=== PATIENT | female | born 1980 | race Caucasian/White ===

== ENCOUNTER 2019-06-17 08:47 | Outpatient (CLI) | payer OTHER | END 2019-06-17 08:48 | disposition home or self-care (01) | LOC: RT 08:47 | PROVIDERS: ATTEND Naturopath | DX: I49.9 Cardiac arrhythmia, unspecified (principal); R00.2 Palpitations | CPT/HCPCS: 93005 ==

== ENCOUNTER 2019-06-28 07:46 | Outpatient (CLI) | payer OTHER ==
[2019-06-28 08:18] LABS: BASOPHILS # (AUTO) 0.1 10^3/uL (0.0-0.1); BASOPHILS % (AUTO) 1.6 %; EOSINOPHILS # (AUTO) 0.3 10^3/uL (0.0-0.7); EOSINOPHILS % (AUTO) 5.6 %; HGB - HEMOGLOBIN 14.8 g/dL (12.0-16.0); LYMPHOCYTES # (AUTO) 1.7 10^3/uL (1.5-3.5); LYMPHOCYTES % (AUTO) 30.5 %; MEAN CORPUSCULAR HEMOGLOBIN 29.2 pg (27.0-31.0); MEAN CORPUSCULAR VOLUME 88.4 fL (81.0-99.0); MEAN PLATELET VOLUME 9.7 fL (7.9-10.8); MONOCYTES # (AUTO) 0.5 10^3/uL (0.0-1.0); MONOCYTES % (AUTO) 8.4 %; NEUTROPHILS # (AUTO) 2.9 10^3/uL (1.5-6.6); NEUTROPHILS % (AUTO) 53.5 %; PLT - PLATELET COUNT 236 10^3/uL (130-450); RED BLOOD COUNT 5.07 10^6/uL (4.20-5.40); RED CELL DISTRIBUTION WIDTH 12.4 % (12.0-15.0); WHITE BLOOD COUNT 5.5 x10^3/uL (4.8-10.8)
[2019-06-28 08:38] LABS: % IRON SATURATION 33 % (20-50); GLUCOSE,FASTING 105 mg/dL (70-100); IRON 121 ug/dL (28-170); TOTAL IRON BINDING CAPACITY 365 ug/dL (250-450); TRANSFERRIN 261 mg/dL (192-382)
[2019-06-28 08:49] LABS: THYROID STIMULATING HORMONE 2.44 uIU/mL (0.34-5.60)
[2019-06-28 08:52] LABS: FREE T4 (FREE THYROXINE) 0.68 ng/dL (0.58-1.64)
[2019-06-28 08:55] LABS: FERRITIN 36.1 ng/mL (11.0-306.8)
[2019-06-28 09:10] LABS: CRP - C-REACTIVE PROTEIN < 1.0 mg/dL (0-1.0)
[2019-06-28 09:41] LABS: HB2 TOTAL 15.8 g/dL; HEMOGLOBIN A1C 0.48 g/dL; HEMOGLOBIN A1C % 4.9 % (4.6-6.2)
[2019-06-29 11:24] LABS: HOMOCYSTEINE 7.4 umol/L (<10.4)
== END 2019-06-28 07:47 | disposition home or self-care (01) ==
LOC: LAB 07:46
PROVIDERS: ATTEND Naturopath
DX: R53.83 Other fatigue (principal)
CPT/HCPCS: 36415; 81599; 82728; 82947; 83036; 83090; 83525; 83540; 83921; 84439; 84443; 84466; 84481; 85025; 86140; 86376; 86800